=== PATIENT | male | born 1985 | race Two or more races ===

== ENCOUNTER → 2021-12-15 | Emergency (ER) | payer OTHER ==
[~2021-12-15] VITALS: Ht 154.9 cm; Wt 881.3 kg
== END | disposition home or self-care (01) ==
LOC: ER 02:54
DX: F10.129 Alcohol abuse with intoxication, unspecified (principal); F12.929 Cannabis use, unspecified with intoxication, unspecified; Y90.9 Presence of alcohol in blood, level not specified; R11.2 Nausea with vomiting, unspecified; R42 Dizziness and giddiness